=== PATIENT | female | born 1995 | race Caucasian/White ===

== ENCOUNTER 2018-10-11 21:58 | Emergency (ER) | payer OTHER ==
[~2018-10-11] VITALS: Ht 162.6 cm; Wt 104.3 kg
[~2018-10-11 21:58] MED LIST: SILVADENE20 GM TP; VALACYCLOVIR500 MG PO
[2018-10-11] MEDS ORDERED: ACYCLOVIR 400400 MG PO (23:35)
[2018-10-12 00:33] VITALS: BP 112/76
== END 2018-10-12 00:34 | disposition home or self-care (01) ==
LOC: ER 21:58
DX: B00.9 Herpesviral infection, unspecified (principal); Z88.0 Allergy status to penicillin; Z91.010 Allergy to peanuts